=== PATIENT | male | born 1995 | race Caucasian/White ===

== ENCOUNTER 2016-09-25 00:50 | Emergency (ER) | payer BC ==
[2016-09-25 01:07] VITALS: BP 131/77; PULSE 75; RESP 18; TEMP 97.8
[2016-09-25] MEDS ORDERED: PROPARACAINE 0.5% OPHTH DROPS 15 ML BTL RIGHT EYE STA (01:11)
[2016-09-25] MEDS ORDERED: TOBRAMYCIN 0.3% OPHTH DROPS 5 ML BTL RIGHT EYE STA (01:22)
[2016-09-25] MEDS ORDERED: DIPH,PERTUS(ACELL)TETVAC-LF 0.5 ML VIAL IM ONE (01:22)
--- NOTE | 2016-09-25 01:25 | ED ---
General Adult HPI - General Chief complaint: Eye Problems Stated complaint: eye injury Time Seen by Provider: 09/25/16 01:00 Source: patient, RN notes reviewed Mode of arrival: ambulatory Limitations: no limitations - History of Present Illness Initial comments: This is a 21-year-old male who presents to the emergency department complaining of pain in the right eye. Patient states her decubital because it feels like sometimes it appeared patient states she was in bed watching TV when all of a sudden he started having pain in the right eye and has gotten progressively worse. Patient denies any visual disturbance. But he sits difficult to see because he can't keep his eye open. Patient states he does have a tetanus up-to -date. Patient denies any problems with the left eye. - Related Data Home Medications Medication Instructions Recorded Confirmed No Known Home Medications [No 09/25/16 09/25/16 Known Home Medications] Allergies Allergy/AdvReac Type Severity Reaction Status Date / Time No Known Allergies Allergy Verified 09/25/16 01:07 Review of Systems ROS Statement: Those systems with pertinent positive or pertinent negative responses have been documented in the HPI. ROS Other: All systems not noted in ROS Statement are negative. Past Medical History Past Medical History: No Reported History History of Any Multi-Drug Resistant Organisms: None Reported Past Surgical History: No Surgical Hx Reported Past Psychological History: No Psychological Hx Reported Smoking Status: Current some day smoker Past Alcohol Use History: Occasional Past Drug Use History: None Reported General Exam - General Exam Comments Initial Comments: GENERAL Patient is well-developed and well-nourished. Patient is in mild distress. EYES Patient has a foreign body in the center of his pupil on the cornea. SKIN Unremarkable NEURO The patient is alert and oriented 3 PYSCH Patient has normal interpersonal interactions. MUSCULOSKELETAL Limitations: no limitations Course Vital Signs 09/25/16 01:04 Temperature 97.8 F Pulse Rate 75 Respiratory 18 Rate Blood Pressure 131/77 O2 Sat by Pulse 98 Oximetry Procedures - Procedures Initial comment: I used proparacaine to numb the eye and fluorescein stain at the patient had a foreign body in the center of his cornea. I used an 18-gauge needle to remove the foreign body removed successfully. I also flipped the patient's eyelids and saw no foreign body under the eyelids. Disposition Clinical Impression: Foreign body, eye Disposition: HOME SELF-CARE Condition: Good Instructions: Eye Foreign Body (ED) Additional Instructions: Patient should use tobramycin every 4 hours 1 drop to the right eye if symptoms worsen or do not improve patient should follow-up with ophthalmology Referrals: None,Stated [Primary Care Provider] - 1-2 days Time of Disposition: 01:25
== END 2016-09-25 01:39 | disposition home or self-care (01) ==
LOC: EC 00:50
DX: T15.01XA Foreign body in cornea, right eye, initial encounter (principal); X58.XXXA Exposure to other specified factors, initial encounter; Y92.003 Bedroom of unspecified non-institutional (private) residence as the place of occurrence of the external cause; F17.200 Nicotine dependence, unspecified, uncomplicated
CPT/HCPCS: 65220; 90471; 90715; 99283

== ENCOUNTER 2017-02-08 05:59 | Emergency (ER) | payer BC, OTHER ==
--- NOTE | 2017-02-08 07:13 | ED ---
Chest Pain HPI - General Chief Complaint: Chest Pain Stated Complaint: SOB Time Seen by Provider: 02/08/17 07:00 Source: patient, RN notes reviewed Mode of arrival: ambulatory Limitations: no limitations - History of Present Illness Initial Comments: This is a 21-year-old male with a benign past medical history states he had the onset about 3 or 4 days ago of left-sided chest pain. He states that sharp in nature gets a severe as 7 or 8/10 and does get worse with deep breathing and certain movements. He states he does not recall any injury but he has been packing clonidine and advance of moving to a new place. He also states he does state he does not smoke cigarettes he states. He's had no cough fevers chills nausea vomiting sweats or other symptoms. He has no prior history of any heart or lung disease no family history of the same at an early age. MD Complaint: chest pain - Related Data Home Medications Medication Instructions Recorded Confirmed Ibuprofen [Motrin] 800 mg PO Q6HR PRN 02/08/17 02/08/17 Previous Rx's Medication Instructions Recorded Azithromycin [Zithromax Z-pack] 250 mg PO DIRECTED #6 tab 02/08/17 Ibuprofen 800 mg PO Q6HR PRN #20 tablet 02/08/17 Allergies Allergy/AdvReac Type Severity Reaction Status Date / Time No Known Allergies Allergy Verified 02/08/17 07:21 Review of Systems ROS Statement: Those systems with pertinent positive or pertinent negative responses have been documented in the HPI. ROS Other: All systems not noted in ROS Statement are negative. EKG Findings - EKG Results: EKG: interpreted by KHALIFD, sinus rhythm, normal axis, normal QRS, normal ST/T, no acute changes (Normal sinus rhythm rate is 61. Interval 180 QRS 84 QT since QTC of/410 this is normal. EKG) Past Medical History Past Medical History: No Reported History History of Any Multi-Drug Resistant Organisms: None Reported Past Surgical History: No Surgical Hx Reported Past Psychological History: No Psychological Hx Reported Smoking Status: Current some day smoker Past Alcohol Use History: Occasional Past Drug Use History: None Reported General Exam - General Exam Comments Initial Comments: This is a well-developed well-nourished awake alert oriented 3 male Limitations: no limitations General appearance: alert, in no apparent distress Head exam: Present: atraumatic, normocephalic, normal inspection Eye exam: Present: normal appearance, PERRL, EOMI. Absent: scleral icterus, conjunctival injection, periorbital swelling ENT exam: Present: normal exam, mucous membranes moist Neck exam: Present: normal inspection. Absent: tenderness, meningismus, lymphadenopathy Respiratory exam: Present: normal lung sounds bilaterally, chest wall tenderness (Reproducible tenderness palpation along the left costal sternal costochondral margins. No step-off no crepitation.). Absent: respiratory distress, wheezes, rales, rhonchi, stridor Cardiovascular Exam: Present: regular rate, normal rhythm, normal heart sounds. Absent: systolic murmur, diastolic murmur, rubs, gallop, clicks GI/Abdominal exam: Present: soft, normal bowel sounds. Absent: distended, tenderness, guarding, rebound, rigid Extremities exam: Present: normal inspection, full ROM, normal capillary refill. Absent: tenderness, pedal edema, joint swelling, calf tenderness Back exam: Present: normal inspection Neurological exam: Present: alert, oriented X3, CN II-XII intact Psychiatric exam: Present: normal affect, normal mood Skin exam: Present: warm, dry, intact, normal color. Absent: rash Course Vital Signs 02/08/17 06:06 Temperature 98.6 F Pulse Rate 59 L Respiratory 20 Rate Blood Pressure 122/57 O2 Sat by Pulse 99 Oximetry Chest Pain MDM - MDM I did review the imaging shows evidence of a left lower lobe infiltrate. I did discuss this with the patient the presentation is consistent with costochondritis/chest wall pain in addition to the findings. Patient will be placed on appropriate medication. Disposition Clinical Impression: Left lower lobe pneumonia, Chest wall syndrome, Costalchondritis Disposition: HOME SELF-CARE Condition: Good Instructions: Costochondritis (ED), Community Acquired Pneumonia (ED) Additional Instructions: Avoid smoking Prescriptions: Azithromycin [Zithromax Z-pack] 250 mg PO DIRECTED #6 tab Ibuprofen 800 mg PO Q6HR PRN #20 tablet PRN Reason: Pain Referrals: None,Stated [Primary Care Provider] - 1-2 days
--- NOTE | 2017-02-08 07:34 | XR ---
EXAMINATION TYPE: XR chest 2V DATE OF EXAM: 02/08/2017 COMPARISON: Chest x-ray November 07, 2010 HISTORY: Chest pain TECHNIQUE: Frontal and lateral views of the chest are obtained. FINDINGS: There is diminished inspiration on current study with new patchy left greater than right b ibasilar atelectasis and/or infiltrate. The cardiac silhouette size is more prominent and upper limit s of normal. The osseous structures are intact. IMPRESSION: Diminished inspiration with new patchy left greater than right bibasilar atelectasis and /or infiltrate. Consider progress study.
[2017-02-08 08:10] VITALS: BP 94/45; PULSE 61; RESP 17; TEMP 97.7
== END 2017-02-08 08:08 | disposition home or self-care (01) ==
LOC: EC 05:59
DX: J18.9 Pneumonia, unspecified organism (principal); M94.0 Chondrocostal junction syndrome [Tietze]; F17.200 Nicotine dependence, unspecified, uncomplicated
CPT/HCPCS: 71020; 99285